=== PATIENT | male | born 1930 | race Caucasian/White ===

== ENCOUNTER 2018-05-03 13:18 | Inpatient (IN) ==
[2018-05-03 15:53] LABS: BASO# 0.02 X1000 (0.0-0.2); BASO% 0.3 % (0.0-0.8); EOS# 0.26 X1000 (0.0-0.7); HEMOGLOBIN 12.6 g/dL (14.0-18.0); LYMPH# 1.69 X1000 (1.2-3.4); LYMPH% 25.7 % (20.5-51.1); MCHC 32.3 g/dL (33-37); MCV 95.8 FL (81-99); MONO# 0.88 X1000 (0.11-0.59); MONO% 13.4 % (1.7-9.3); MPV 9.3 FL (7.4-10.4); NEUT# 3.73 X1000 (1.4-6.5); NEUT% 56.6 % (42.2-75.2); PLT 210 X1000 (130-400); RBC 4.07 XMIL (4.7-6.1); RDW 13.7 % (11.5-14.5); WBC 6.58 X1000 (4.8-10.8)
[2018-05-03 16:34] LABS: AGAP 10; BUN 28 mg/dL (8-22); CHLORIDE 103 mmol/L (98-107); COSMO 290; CREATININE 0.9 mg/dL (0.7-1.2); ESTIMATED GFR > 60; GLUCOSE 116 mg/dL (70-104); SODIUM 142 mmol/L (136-145); TCO2 29 mmol/L (25-35)
[2018-05-03] MEDS ORDERED: CARBIDOPA PO SCH (17:00)
[2018-05-03] MEDS ORDERED: LEVODOPA PO SCH (17:00)
--- NOTE | 2018-05-03 20:07 | Diag Imaging Result Doc PS360 ---
LUMBAR SPINE - 05/03/2018 INDICATION: right sciatica pain TECHNIQUE: Six views COMPARISON: None FINDINGS: Alignment is anatomic. There is mild compression deformity of T12 with about 25% loss of height. Other vertebral body heights are preserved. There is marked multilevel disc degeneration throughout the thoracolumbar spine. This is worst at L2-L3 and L3-L4. There is marked multilevel facet degeneration with hypertrophy. IMPRESSION: 1. Presumably chronic compression deformity at T12. 2. Advanced thoracolumbar spondylosis. Electronically signed by Chad Guardado 05/03/2018 8:05 PM
[2018-05-03] MEDS: ULTRACET 37.5MG/325MG PO PRN (21:02)
[2018-05-03] MEDS: MIRAPEX PO SCH (21:03)
[2018-05-03] MEDS: FLOMAX PO SCH (21:03)
[2018-05-03] MEDS: AVODART PO SCH (21:03)
--- NOTE | 2018-05-03 22:14 | HISTORY AND PHYSICAL ---
CHIEF COMPLAINT: Recurrent falls, worsening of parkinsonism tremor as well as rigidity, not able to control parkinsonism symptoms with addition of Cogentin and Neupro. HISTORY OF PRESENT ILLNESS: He is an 87-year-old white male with a history of Parkinson syndrome worsening for the last few months with frequent falls with a lot of rigidity and tremor. Patient was evaluated in my office on 04/27/2018. I did increase the Sinemet 50/200 three times daily. He is already on Mirapex. Not able to tolerate before with Cogentin and also Neupro. Apparently, the patient was seen third time in the ER with falls with a severe right-sided thigh pain, not able to ambulate. Basically admitted to the hospital. He is high risk for falls, needs to control the parkinsonism symptoms and also physical therapy as well as placement. The patient did not have enough support, basically lives with a daughter. I requested Dr. Dorman to assist about this parkinsonism. PAST MEDICAL HISTORY: Abdominal aortic aneurysm 4.8 cm, atrial fibrillation, BPH, coronary artery disease, hyperlipidemia, hypertension, kidney stones, Parkinson disease, osteoarthritis of lumbar spine. PAST SURGICAL HISTORY: Tonsillectomy. MEDICATIONS: Avodart 0.5 daily, Flomax 0.4 daily, Linzess 145 mcg daily, lisinopril 2.5 daily, Mirapex 1 mg p.o. b.i.d., simvastatin 40 daily, Sinemet CR 50/200 three times daily. ALLERGIES: Amoxicillin. SOCIAL HISTORY: Retired, no smoking, no alcohol, lives by himself with a daughter. FAMILY HISTORY: Father of lymphoma at 89. Mom of cancer not known. HEALTH MAINTENANCE: Tetanus 2011 and flu vaccine. Declined pneumococcal April 2017. Last physical July 2017. Colonoscopy 2009. REVIEW OF SYSTEMS: HEENT: No headache. No vision problem. No earache. No sore throat. Neck: No goiter. No lymphadenopathy. No bruit. Cardiopulmonary: No chest pain, shortness of breath, PND, orthopnea. Gastrointestinal: No nausea, vomiting, abdominal pain. Genitourinary: No history of hesitancy, frequency, dysuria, worsening of tremor, rigidity and complains of right thigh pain. Neurological Exam: Tremor, rigidity, falling. Last GLADYS 04/21/2016 , normal resting arterial flow studies. PHYSICAL EXAMINATION: VITAL SIGNS: Temperature is 98 degrees, pulse is 73, blood pressure 160/77, 5 feet 8 inches, 193 pounds. HEENT EXAM: Atraumatic, normocephalic. Pupils equal, reacting to light. TMs are normal. Nose and throat within normal limits. NECK: Supple. No lymphadenopathy. No goiter. CHEST: Bilateral air entry. HEART: Sounds are regular. ABDOMEN: Belly is soft, nontender. EXTREMITIES: Resting tremor, rigidity and some ecchymosis in both legs. Pulses are palpable on both. No signs of gangrene noted. INVESTIGATIONS: Lumbar spine x-ray: Chronic compression deformity T12, advanced thoracolumbar spondylosis. EKG was atrial fibrillation. X-ray of the hip/pelvis: No evidence of acute bony disease. X-ray of the femur: No evidence of acute disease. Atherosclerosis noted. LABORATORY DATA: CBC: White cell count 6.5, hematocrit 39, platelets 210,000. SMA 7 is normal. ASSESSMENT AND PLAN: 1. An 87-year-old white male with recurrent falls, seen at multiple ER visits with advanced Parkinson disease, not able to control with spasms and plan is continue on Sinemet 1 tablet t.i.d., maybe increasing to 2 tablets twice daily. We will ask Dr. Dorman. 2. Right thigh pain. X-rays were negative. We will order x-ray of lumbar spine. 3. Chronic atrial fibrillation, stable, unable to tolerate anticoagulation due to gastrointestinal bleeding. 4. Benign prostatic hypertrophy on Avodart and Flomax. 5. Coronary artery disease. He is on aspirin, stable. 6. Hypertension on lisinopril 2.5 daily. 7. We will also check the CK, CRP and physical therapy consult. 8. Abdominal aortic aneurysm 4.8 cm. He is due for another check in July 2018. 9. History of kidney stones, stable. 10. Hyperlipidemia, on simvastatin 40 daily. 11. Intermittent atrial fibrillation. Last stress test was negative in May 2017. Discussed the plan of care with the family at bedside. We will follow up. cc: Chavo Pepe MD [facility]
[2018-05-04] MEDS: ULTRACET 37.5MG/325MG PO PRN ×2 (03:25→18:40)
[2018-05-04 06:21] LABS: C REACTIVE PROT QUANT 9.54 mg/L (0.00-5.00)
[2018-05-04 06:52] LABS: CK INDEX 2.9 (0.0-2.5); CK-MB 6.18 ng/mL (0.0-5.0)
[2018-05-04] MEDS: PRINIVIL PO SCH (08:51)
[2018-05-04] MEDS: ASPIRIN PO SCH (08:52)
[2018-05-04] MEDS: STALEVO 100 PO SCH ×2 (08:55→22:49)
[2018-05-04] MEDS ORDERED: FLOMAX PO SCH (09:00)
[2018-05-04] MEDS ORDERED: MIRAPEX PO SCH (09:00)
[2018-05-04] MEDS ORDERED: AVODART PO SCH (09:00)
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
--- NOTE | 2018-05-04 19:39 | PROGRESS NOTE ---
DATE: 05/04/2018 SUBJECTIVE: An 87-year-old white male, exhibiting severe Parkinson's syndrome. Appreciated Dr. Dorman. He has a tremendous spasms, elevated CK, and not able to walk. OBJECTIVE: Vital signs: On exam, temperature is 97 degrees, pulse 79. Vitals are stable. HEENT: Within normal limits. Neck: Supple. Chest: Clear. Heart: Sounds are irregular. Abdomen: Belly is soft, nontender. Neurological: No obvious deficits. ASSESSMENT AND PLAN: 1. Declining of activities of daily living with worsening of Parkinson's syndrome. Currently on Stalevo 2 tablets b.i.d., physical therapy, and Mirapex. 2. Coronary artery disease (CAD), stable. 3. Atrial fibrillation, stable. Not a candidate for anticoagulation. We will follow up. Continue on physical therapy. LEVEL OF DOCUMENTATION: 35 minutes. cc: Chavo Pepe MD
[2018-05-04] MEDS: XALATAN 0.005% OPH SOLN BOTH EYES SCH (22:49)
[2018-05-04] MEDS: FLOMAX PO SCH (22:49)
[2018-05-04] MEDS: MIRAPEX PO SCH (22:50)
[2018-05-04] MEDS: AVODART PO SCH (22:50)
[2018-05-05] MEDS ORDERED: STALEVO 100 PO SCH (09:00)
[2018-05-05] MEDS: PRINIVIL PO SCH (09:35)
[2018-05-05] MEDS: ASPIRIN PO SCH (09:36)
--- NOTE | 2018-05-05 10:48 | PROGRESS NOTE ---
DATE: 05/05/2018 This morning, Mr. Nolan is easily waked and he seemed more alert and more consistently attentive than yesterday. Voice is stronger today, but still difficult to understand every word. He continues very tremulous. There is prominent intention tremor in each arm on exam today. He continues to have diffuse rigidity. He used his right arm a little bit more purposefully than the left, but I could not find a definite focal neurologic deficit. I do not have any new thoughts today. I would like to follow him off of antiparkinsonian medicines for a short time and see what is his baseline limb tone and tremor pattern. Further plans will depend on that. I have ordered to discontinue carbidopa/levodopa/ entacapone and pramipexole now. I discussed that with daughter yesterday. Thanks for asking neurology to see Mr. Nolan. cc: MD Chavo Fagan III, MD MTDD
--- NOTE | 2018-05-05 20:27 | PROGRESS NOTE ---
DATE: 05/05/2018 SUBJECTIVE: The patient is mostly rigidity and checking the spasms. Not able to ambulate. EXAMINATION: Vital Signs: Temp is 98, pulse 74, blood pressure 122/70. HEENT: Within normal limits. Neck: Supple. Chest: Clear. Heart: Heart sounds are irregular. Abdomen: Belly is soft, nontender. ASSESSMENT AND PLAN: 1. Parkinsonism, not able to improve. I am going to follow up with Dr. Dorman. Discontinue Mirapex and Stalevo and see how he does. 2. Benign prostatic hypertrophy, on Flomax and Avodart. 3. Increase of the CK probably from the muscle spasms. Basically, patient is bedridden and will follow his progress after stopping the medicines. 4. Discussed with the patient's daughter. LEVEL OF DOCUMENTATION: 25 minutes. cc: Chavo Pepe MD
[2018-05-05] MEDS: FLOMAX PO SCH (20:52)
[2018-05-05] MEDS: XALATAN 0.005% OPH SOLN BOTH EYES SCH (20:52)
[2018-05-05] MEDS: AVODART PO SCH (20:52)
[2018-05-06] MEDS: PRINIVIL PO SCH (09:00)
[2018-05-06] MEDS: MIRALAX PO SCH (09:00)
[2018-05-06] MEDS: ASPIRIN PO SCH (09:00)
--- NOTE | 2018-05-06 12:21 | PROGRESS NOTE ---
DATE: 05/06/2018 Mr. Nolan is sitting up at the bedside, awake and alert, attentive. He seems brighter than yesterday. Voice is stronger. He has significantly improved limb tone, and he is less tremulous. There is a little bit of resting tremor and still some action tremor and intention tremor in the arms. Findings are a little bit more prominent in the right arm than the left right now. I did not test his gait. He reports feeling better today. Some of the improvement may be attributed to holding his dopaminergic medications. There may also be some spontaneous improvement associated with his hospitalization, hydration, and general management unrelated to that medication change. Based on his clinical appearance now, I would continue to follow him without antiparkinsonian medicines. Depending on his clinical course, we might need to resume some of that medicine later. Next step, as outlined earlier, would be to consider cholinesterase inhibitor trial electively. I would continue physical therapy. Thanks for asking Neurology to see Mr. Nolan. cc: MD Chavo Fagan III, MD MTDD
[2018-05-06] MEDS: AVODART PO SCH (21:20)
[2018-05-06] MEDS: XALATAN 0.005% OPH SOLN BOTH EYES SCH (21:20)
[2018-05-06] MEDS: FLOMAX PO SCH (21:20)
[2018-05-07] MEDS: PRINIVIL PO SCH (09:15)
[2018-05-07] MEDS: ASPIRIN PO SCH (09:15)
[2018-05-07] MEDS: MIRALAX PO SCH (09:16)
--- NOTE | 2018-05-07 10:19 | PROGRESS NOTE ---
DATE: 05/07/2018 Mr. Nolan is supine in bed, awake and alert, attentive to my questions. He continues tremulous. There is increased tone throughout, but rigidity is less prominent than a few days ago. He did well on [id number] testing bilaterally. He has good power in the arms. Facial motility is diminished bilaterally, but symmetric. Voice is feeble, but improved compared to a few days ago. I do not have any new thoughts today. His parkinsonian syndrome appears improved with less dopaminergic medicine on board at this point. I would continue to follow without those medicines, and consider cholinesterase inhibitor electively. If he appears more parkinsonian, we can reconsider dopaminergic medication. Thanks for asking Neurology to see Mr. Nolan. I will be glad to see him as an outpatient if needed. cc: MD Chavo Fagan III, MD MTDD
[2018-05-07] MEDS: AVODART PO SCH (19:59)
[2018-05-07] MEDS: XALATAN 0.005% OPH SOLN BOTH EYES SCH (20:00)
[2018-05-07] MEDS: FLOMAX PO SCH (20:00)
--- NOTE | 2018-05-07 20:07 | PROGRESS NOTE ---
DATE: 05/07/2018 SUBJECTIVE: Appreciate Dr. Dorman consult. He is awake. He needs some assistance for eating and continues tremulous, increased tone throughout but rigidity less prominent. PHYSICAL EXAMINATION: On examination, temp is 97 degrees, vitals are stable.HEENT: Within normal limits. still has tremor last visit. His CK was coming down. Troponin was negative. ASSESSMENT AND PLAN: 1. Parkinsonism. It is not clear whether it is cholinergic crisis versus dopamine disease crisis. Currently he is little better off the dopaminergic medications. Will continue to monitor. 2. Out of the bed with physical therapy. 3. Benign prostatic hypertrophy, stable. 4. Hypertension, stable. 5. Constipation on MiraLAX. 6. We will continue to see the progress. LEVEL OF DOCUMENTATION: 25 minutes. cc: Chavo Pepe MD MTDD
[2018-05-08] MEDS: D5 1/2 NS 1,000 ML IV SCH (12:30)
[2018-05-08] MEDS: PRINIVIL PO SCH (12:48)
[2018-05-08] MEDS: ASPIRIN PO SCH (12:48)
[2018-05-08] MEDS: MIRALAX PO SCH (12:49)
--- NOTE | 2018-05-08 19:15 | PROGRESS NOTE ---
DATE: 05/08/2018 SUBJECTIVE: Patient's condition is deteriorating after stopping the medications. He is still not able to eat, he is choking and he is still grossly tremulous. Rigidity slightly decreased and he is basically bedridden. He needs full-time assistance. EXAM: Vital Signs: Temperature is 98, pulse is 80, blood pressure is stable. HEENT: Within normal limits. Neck: Supple. Chest: Clear. Heart: Sounds are regular. Abdomen: Belly is soft, nontender. : He is in diapers. ASSESSMENT AND PLAN: 1. History of Parkinson disease. It looks like wearing off phenomenon, worsening of rigidity. We will discuss with Dr. Dorman on Thursday. 2. Not able to eat. Will get IV fluids. 3. Other problems are stable. 4. Elevated CK. 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 Follow up CK is normal. We will repeat the labs in the morning. LEVEL OF DOCUMENTATION: 25 minutes. cc: Chavo Pepe MD
[2018-05-08] MEDS: AVODART PO SCH (23:23)
[2018-05-08] MEDS: XALATAN 0.005% OPH SOLN BOTH EYES SCH (23:24)
[2018-05-08] MEDS: FLOMAX PO SCH (23:24)
[2018-05-09 06:54] LABS: BASO# 0.03 X1000 (0.0-0.2); BASO% 0.2 % (0.0-0.8); EOS# 0.27 X1000 (0.0-0.7); EOS% 2.2 % (0.0-10.0); IMM GRAN# 0.03 X1000 (0.0-0.04); IMM GRAN% 0.2 % (0.0-0.5); LYMPH# 2.44 X1000 (1.2-3.4); LYMPH% 19.7 % (20.5-51.1); MCH 30.8 PG (27-31); MCHC 32.6 g/dL (33-37); MCV 94.7 FL (81-99); MONO% 12.9 % (1.7-9.3); MPV 9.3 FL (7.4-10.4); NEUT# 8.04 X1000 (1.4-6.5); NEUT% 64.8 % (42.2-75.2); PLT 237 X1000 (130-400); RBC 4.54 XMIL (4.7-6.1); RDW 13.9 % (11.5-14.5); WBC 12.41 X1000 (4.8-10.8)
[2018-05-09 07:25] LABS: AGAP 12; BUN 23 mg/dL (8-22); CALCIUM 9.1 mg/dL (8.8-10.2); CHLORIDE 104 mmol/L (98-107); COSMO 290; ESTIMATED GFR > 60; GLUCOSE 119 mg/dL (70-104); POTASSIUM 4.3 mmol/L (3.5-5.1); SODIUM 143 mmol/L (136-145); TCO2 27 mmol/L (25-35)
[2018-05-09 07:45] LABS: TSH 1.6 uIUmL (0.27-4.20)
[2018-05-09] MEDS: D5 1/2 NS 1,000 ML IV SCH (10:13)
[2018-05-09] MEDS: MIRALAX PO SCH (10:39)
[2018-05-09] MEDS: PRINIVIL PO SCH (10:39)
[2018-05-09] MEDS: ASPIRIN PO SCH (10:39)
--- NOTE | 2018-05-09 12:56 | PROGRESS NOTE ---
DATE: 05/09/2018 SUBJECTIVE: The patient's rigidity improved but still is tremulous and not able to walk. He was started on IV fluids. PHYSICAL EXAMINATION: Vital Signs: Temperature is 98.1 degrees, pulse is 76, blood pressure is 145/74. HEENT: Examination within normal limits. Neck: Supple. He still has a resting tremor noted. Less rigidity and he is in diapers. Neurological: Examination nonfocal. INVESTIGATIONS: CBC: White cell count 12, hematocrit 43, platelets 237,000. SMA 7: Sodium 140, potassium 4.3, chloride 104, BUN 23, creatinine 1.0. CK and troponin were normal. B12 and TSH are normal. ASSESSMENT AND PLAN: 1. Parkinsonism, definite diagnosis. We will discuss with Dr. Dorman about the wearing off phenomenon. 2. Coronary artery disease. 3. Benign prostatic hypertrophy. 4. Hypertension, stable. 5. Elevated CK, is coming down. 6. Continue out of the bed with physical therapy. We will see the progress and discuss with the family about possible rehab placement. 7. Continue intravenous fluids. LEVEL OF DOCUMENTATION: 25 minutes. cc: Chavo Pepe MD
[2018-05-09] MEDS: XALATAN 0.005% OPH SOLN BOTH EYES SCH (21:00)
[2018-05-09] MEDS: FLOMAX PO SCH (22:02)
[2018-05-09] MEDS: AVODART PO SCH (22:02)
[2018-05-10] MEDS: D5 1/2 NS 1,000 ML IV SCH (05:30)
[2018-05-10] MEDS: ASPIRIN PO SCH ×2 (07:58→09:28)
[2018-05-10] MEDS: PRINIVIL PO SCH ×2 (07:58→09:28)
[2018-05-10] MEDS: MIRALAX PO SCH ×2 (07:58→09:28)
--- NOTE | 2018-05-10 17:27 | PROGRESS NOTE ---
DATE: 05/10/2018 Mr. Nolan is supine, using his arms and legs spontaneously, showing improved facial expression. Voice continues stronger than on presentation. Limb tone is much improved compared to the rigidity he had on presentation. He did well on [id number] bilaterally with some action tremor noted, but no definite resting tremor right now. He does not have any antiparkinsonian medication on board right now. I would continue to follow him clinically and hope we can continue holding dopaminergic medicines. If he becomes more parkinsonian, we can reconsider. I would consider cautious trial with cholinesterase inhibitor, unless those have been tried before. Potential benefit will not be rapid, and cholinesterase inhibitor trial is not urgent. That could be postponed until he is discharged. Thanks for asking Neurology to see Mr. Nolan. I will be glad to see him as an outpatient, if needed. cc: MD Chavo Fagan III, MD MTDYanira
--- NOTE | 2018-05-10 18:31 | Diag Imaging Result Doc PS360 ---
EXAM: CHEST-PORTABLE 05/10/2018 HISTORY: Rehab Placement TECHNIQUE: AP portable upright at 1821 COMMENT: The appearance the chest has not changed significantly since 05/08/2017 considering differences in inspiration. IMPRESSION: No acute disease. Electronically signed by Mario Chavarria 05/10/2018 6:29 PM
--- NOTE | 2018-05-10 20:54 | PROGRESS NOTE ---
DATE: 05/10/2018 SUBJECTIVE: The patient is a little better. Speech is better. Family was at bedside. Wants to go for rehab. Dr. Dorman recommended continue to hold off antiparkinson drugs. Patient continues to exhibit a tremor, but no rigidity noted, which is decreased. OBJECTIVE: Vital Signs: Temperature is 97, pulse 75, blood pressure is 138/73. HEENT: Exam within normal limits. Neck: Supple. No lymphadenopathy. Chest: Bilateral air entry. Heart: Sounds are regular. Abdomen: Belly is soft, nontender. Good bowel sounds. ASSESSMENT AND PLAN: Deconditioning due to worsening of Parkinsonian crisis off medications, see how he responds. Out of the bed with physical therapy. Currently stable and waiting for rehab placement. cc: Chavo Pepe MD
[2018-05-10] MEDS: FLOMAX PO SCH (22:42)
[2018-05-10] MEDS: AVODART PO SCH (22:42)
[2018-05-10] MEDS: XALATAN 0.005% OPH SOLN BOTH EYES SCH (22:42)
[2018-05-11] MEDS: ASPIRIN PO SCH (10:59)
[2018-05-11] MEDS: PRINIVIL PO SCH (10:59)
[2018-05-11] MEDS: D5 1/2 NS 1,000 ML IV SCH (11:11)
[2018-05-11] MEDS: MIRALAX PO SCH (11:34)
[2018-05-11] MEDS: AVODART PO SCH (20:15)
[2018-05-11] MEDS: FLOMAX PO SCH (20:15)
[2018-05-11] MEDS: XALATAN 0.005% OPH SOLN BOTH EYES SCH (20:15)
--- NOTE | 2018-05-11 22:19 | PROGRESS NOTE ---
DATE: 05/11/2018 SUBJECTIVE: The patient's daughter was at bedside. He still has a tremor noted. I did encourage the patient to ambulate. Waiting for placement. OBJECTIVE: On examination, temperature is 97, pulse 77, blood pressure is stable. On physical exam, no change. Tremor, mild rigidity noted. ASSESSMENT AND PLAN: 1. Deconditioning due to rigidity and off anti-Parkinson's drugs. 2. High risk for fall, assistance with physical therapy. 3. Rest of the problems are stable. Baseline chest x-ray stable. 4. Attempt to send for rehab off the Parkinson's drugs and will follow up on the clinical course. cc: Chavo Pepe MD
[2018-05-12] MEDS: D5 1/2 NS 1,000 ML IV SCH (06:44)
[2018-05-12] MEDS: MIRALAX PO SCH (09:41)
[2018-05-12] MEDS: PRINIVIL PO SCH (09:41)
[2018-05-12] MEDS: ASPIRIN PO SCH (09:41)
--- NOTE | 2018-05-12 12:32 | PROGRESS NOTE ---
DATE: 05/12/2018 SUBJECTIVE: Mr. Nolan is sleeping peacefully. He has not had prominent parkinsonism in the last several days. Rigidity has been improved. PLAN: I agree with plans for rehab when arranged. No new suggestion from Neurology standpoint today. Thanks for asking me to see Mr. Nolan. cc: MD Chavo Fagan III, MD
[2018-05-12] MEDS: FLOMAX PO SCH (21:15)
[2018-05-12] MEDS: AVODART PO SCH (21:15)
--- NOTE | 2018-05-12 21:48 | PROGRESS NOTE ---
DATE: 05/12/2018 SUBJECTIVE: The patient continues to have tremors, mild rigidity. He is sleeping peacefully and Dr. Dorman continues to hold the antiparkinson drugs. He is able to walk with some assistance. PHYSICAL EXAMINATION: Temperature is 97, vitals are stable. Physical exam no change. ASSESSMENT AND PLAN: Deconditioning with underlying Parkinson disease. We will hold off the medicines, see how he does. Discussed with the patient's daughter and waiting for rehab placement. LEVEL OF DOCUMENTATION: 15 minutes. cc: Chavo Pepe MD
[2018-05-13] MEDS: XALATAN 0.005% OPH SOLN BOTH EYES SCH (02:06)
[2018-05-13] MEDS: D5 1/2 NS 1,000 ML IV SCH (04:27)
[2018-05-13] MEDS: ASPIRIN PO SCH (08:15)
[2018-05-13] MEDS: PRINIVIL PO SCH (08:16)
[2018-05-13] MEDS: MIRALAX PO SCH (08:16)
--- NOTE | 2018-05-13 08:16 | DISCHARGE SUMMARY ---
ADMISSION DATE: 05/03/2018 DISCHARGE DATE: 05/13/2018 DISCHARGING DIAGNOSES: 1. Deconditioning. Postural imbalance. Recurrent falls due to worsening of parkinsonism. SECONDARY DIAGNOSES: 1. Elevated CK due to trauma. 2. Abdominal aortic aneurysm 4.8 cm. 3. Chronic atrial fibrillation. 4. Benign prostatic hypertrophy. 5. Coronary artery disease. 6. Hyperlipidemia. 7. Hypertension. 8. Kidney stones. 9. Lumbar spine spondylosis. 10. History of Parkinson's disease. 11. Glaucoma. CONSULTATIONS: Dr. Dorman. BRIEF HISTORY: Please see the H and P that was done on 05/03/2018. In brief, this is an 87-year- old white male with the above problems with chronic history of Parkinson disease on Mirapex and Sinemet. He continues to have tremor, rigidity, losing the balance and falling. He was treated as an outpatient. Apparently, he had multiple falls and he lives by himself without any assistance. His daughter was his caregiver. He was seen 3 times in the ER prior to the hospitalization. He was not able to ambulate to my office. He was extremely rigid and grossly tremulous. HOSPITAL COURSE: He had elevated CK. 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 He was started on IV fluids and consulted Dr. Dorman. Dr. Dorman believes discontinuing all of the medicines for parkinsonism and see how he does for the next few months. He needs full-time assistance 22/09 care for activities of daily living. He was in diapers. He was given physical therapy assistance for ambulation. Rigidity much improved. He continues to have a tremor. Dr. Dorman recommended continuing to hold on the medications for parkinsonism and follow up as an outpatient in the Movement Disorder. Patient has been transferred to rehab for gait training and ambulation. Followup CK was normal. LABORATORY: CBC: White cell count 12.4, hematocrit 43, and platelets 237,000. SMA 7, sodium 143, potassium 4.3, chloride 104, BUN 23, and creatinine 1.0. Glucose 119. Vitamin B12 319. TSH is normal. CK came back normal as well as troponin. RADIOLOGY/PROCEDURES: Chest x-ray stable. Cardiomegaly. DISCHARGE INSTRUCTIONS: The patient has been discharged to the rehab with the following instructions. 1. Pneumococcal 13 vaccine was given 05/21/2017. 2. Flomax 0.4 daily. 3. Aspirin 81 daily. 4. Dutasteride 0.5 at bedtime. 5. Lisinopril 2.5 daily. 6. Simvastatin 40 daily. 7. Xalatan 1 drop both eyes at bedtime. 8. Tylenol Arthritis as needed. 9. Continue to hold on Sinemet and Mirapex. 10. Continue to monitor his tremor as an outpatient. 11. Patient is going to follow up in my office in [address] Dorman. cc: Chavo Pepe MD MTDD
[2018-05-13 11:20] VITALS: BP 100/49
== END 2018-05-13 13:11 | DRG 57 ==
LOC: DIRADM → OBSVTOIN 13:18 → 4N 14:37
PROVIDERS: ADMIT Internal Medicine; ATTEND Internal Medicine
CPT/HCPCS: 71010; 71045; 72110; 80048; 82550; 82553; 82607; 84443; 84484; 85025; 86140; 97110; 97116; 97162; 97530; 99282; A9270